=== PATIENT | female | born 1955 | race Hispanic/Latino ===

== ENCOUNTER 2017-05-05 12:19 | Emergency (ER) | payer MEDICARE ==
[2017-05-05 12:42] VITALS: BMI 30.9
[2017-05-05 12:48] VITALS: TEMP 98.1
[2017-05-05] MEDS ORDERED: Oxycodone/Acetaminophen 5/325 mg Tab PO STA (12:56)
--- NOTE | 2017-05-05 12:56 | ED PDOC ---
Arrival/HPI - General Chief Complaint: Lower Extremity Problem/Injury Time Seen by Provider: 05/05/17 12:50 Historian: Patient - History of Present Illness Narrative History of Present Illness (Text): 05/05/17 12:51 62 y/o female, pmh including htn/dm/hypothyroidism/stroke with chronic lt. sided decrease sensation, post menopausal, nkda, c/o lt. foot and calf pain x 3 days with no fall or trauma. Pt. stated that she twisted the left foot about 2 days ago, no pain, only pain when walking, no left ankle, admits lt. calf pain but no skin discoloration, no numbness or tingling, no palpitation, no night sweat, no other medical or psychological complaints. Past Medical History - Provider Review Nursing Documentation Reviewed: Yes - Infectious Disease Hx of Infectious Diseases: None - Cardiac Hx Cardiac Disorders: Yes Hx Hypertension: Yes - Pulmonary Hx Respiratory Disorders: No - Neurological Hx Neurological Disorder: Yes (brain aneurysm) HX Cerebrovascular Accident: Yes Other/Comment: left side of the body numbness from residual stroke - HEENT Hx HEENT Disorder: No - Renal Hx Renal Disorder: No - Endocrine/Metabolic Hx Endocrine Disorders: Yes Hx Diabetes Mellitus Type 2: Yes - Hematological/Oncological Hx Blood Disorders: No - Integumentary Hx Dermatological Disorder: No - Musculoskeletal/Rheumatological Hx Musculoskeletal Disorders: No - Gastrointestinal Hx Gastrointestinal Disorders: No - Genitourinary/Gynecological Hx Genitourinary Disorders: No - Psychiatric Hx Psychophysiologic Disorder: No Hx Substance Use: No - Anesthesia Hx Anesthesia: No Family/Social History - Physician Review Nursing Documentation Reviewed: Yes Family/Social History: Unknown Family HX Smoking Status: Former Smoker Hx Alcohol Use: Yes Frequency of alcohol use: Socially Hx Substance Use: No Allergies/Home Meds Allergies/Adverse Reactions: Allergies No Known Allergies Allergy (Verified 05/05/17 12:42) Home Medications: Home Meds Medication Instructions Recorded Confirmed Alprazolam [Xanax] 0.5 mg PO PRN PRN 10/22/15 05/05/17 Folic Acid 1 mg PO DAILY 10/22/15 05/05/17 Levothyroxine Sodium [Unithroid] 100 mcg PO DAILY 10/22/15 05/05/17 Metformin HCl [Glucophage] 500 mg PO QOTHERDAY 10/22/15 05/05/17 Metoprolol Tartrate [Lopressor] 50 mg PO BID 10/22/15 05/05/17 Aspirin [Adult Low Dose Aspirin EC] 325 mg PO HS 05/05/17 05/05/17 Hydrochlorothiazide [Microzide] 12.5 mg PO DAILY 05/05/17 05/05/17 Review of Systems - Review of Systems Constitutional: absent: Fatigue, Fevers Eyes: absent: Vision Changes ENT: absent: Hearing Changes Respiratory: absent: SOB, Cough Cardiovascular: absent: Chest Pain Gastrointestinal: absent: Abdominal Pain, Diarrhea, Nausea, Vomiting Musculoskeletal: Arthralgias, Myalgias. absent: Back Pain, Neck Pain, Joint Swelling Skin: absent: Rash, Pruritis, Skin Lesions Neurological: absent: Headache, Dizziness, Focal Weakness Physical Exam Vital Signs Reviewed: Yes Vital Signs Temp Pulse Resp BP Pulse Ox 05/05/17 12:46 98.1 F 99 H 19 117/82 96 Temperature: Afebrile Blood Pressure: Normal Pulse: Regular Respiratory Rate: Normal Appearance: Positive for: Well-Appearing, Non-Toxic Pain Distress: Moderate Mental Status: Positive for: Alert and Oriented X 3 - Systems Exam Head: Present: Atraumatic, Normocephalic Pupils: Present: PERRL Extroacular Muscles: Present: EOMI Conjunctiva: Present: Normal Mouth: Present: Moist Mucous Membranes Neck: Present: Normal Range of Motion Respiratory/Chest: Present: Clear to Auscultation, Good Air Exchange. No: Respiratory Distress, Accessory Muscle Use Cardiovascular: Present: Regular Rate and Rhythm, Normal S1, S2. No: Murmurs Abdomen: Present: Normal Bowel Sounds. No: Tenderness, Distention, Peritoneal Signs Back: Present: Normal Inspection Upper Extremity: Present: Normal Inspection. No: Cyanosis, Edema Lower Extremity: Present: Normal Inspection, Other (LLE: mild +ttp on the lt. calf and plantar region, negative reeder signs, no skin discoloration, FROM without limitation, sensation intact, motor 5/5, +DPPT pulses, capillary refill < 2 seconds, neurovascular intact. ). No: Edema Neurological: Present: GCS=15, Speech Normal, Motor Func Grossly Intact, Gait Normal, Memory Normal Skin: Present: Warm, Dry, Normal Color. No: Rashes Psychiatric: Present: Alert, Oriented x 3, Normal Insight, Normal Concentration Medical Decision Making ED Course and Treatment: 05/05/17 13:01 -LLE venuous doppler, lt. foot xray -toradol 30mg IM and percocet 05/05/17 14:28 -Pain decreased, posterior splint applied, feels much better. -Discharge home with celebrex, posterior splint, crutches, follow up with your own pmd and podiastrist/orthopedic within 2 days, return to the ER for any new or worsening signs or symptoms. - RAD Interpretation Radiology Orders: 05/05/17 12:56 FOOT LEFT 3 VIEWS ROUTINE [RAD] Stat DUPLEX LOWER EXTRM VEIN LEFT [US] Stat Lt. foot xray: PROCEDURE: Left Foot Radiographs. HISTORY: lt. foot pain sole pain COMPARISON: None. FINDINGS: BONES: No fracture 7 mm inferior calcaneal spur. Even larger posterior calcaneal spurring with subcortical cystic and sclerotic changes noted. There are posterior double well corticated ossifications centers within the inserting Achilles tendon. This appearance suggests chronicity Os peroneum os tibial externum are noted. JOINTS: First metatarsal-phalangeal joint arthrosis SOFT TISSUES: Normal. OTHER FINDINGS: Multiple hammertoe like orientations IMPRESSION: No fracture. Chronic changes about the calcaneus as above LLE venuous doppler: as per preliminary report, no acute dvt Chemic Mangler: Radiologist - Medication Orders Current Medication Orders: Discontinued Medications Ketorolac Tromethamine (Toradol) 30 mg IM STAT STA Stop: 05/05/17 12:57 Last Admin: 05/05/17 13:06 Dose: 30 mg Oxycodone/Acetaminophen (Percocet 5/325 Mg Tab) 1 tab PO STAT STA Stop: 05/05/17 12:57 Last Admin: 05/05/17 13:06 Dose: 1 tab - PA / WEATHER ANALYST / Resident Statement /DO has reviewed & agrees with the documentation as recorded. Disposition/Present on Arrival - Present on Arrival Any Indicators Present on Arrival: No History of DVT/PE: No History of Uncontrolled Diabetes: No Urinary Catheter: No History of Decub. Ulcer: No History Surgical Site Infection Following: None - Disposition Have Diagnosis and Disposition been Completed?: Yes Diagnosis: Plantar fasciitis, Foot pain, Calf pain Disposition: HOME/ ROUTINE Disposition Time: 13:01 Patient Plan: Discharge Patient Problems: Current Active Problems Problem Status Onset Plantar fasciitis Acute Foot pain Acute Calf pain Acute Condition: IMPROVED Additional Instructions: -Discharge home with celebrex, posterior splint, crutches, follow up with your own pmd and podiastrist/orthopedic within 2 days, return to the ER for any new or worsening signs or symptoms. Prescriptions: Celecoxib [CeleBREX] 200 mg PO DAILY PRN #10 cap PRN Reason: Other Referrals: Beni Hummel MD [Primary Care Provider] - Follow up with primary Minda Vasquez DPM [Staff Provider] - Follow up with primary Devin Almaraz MD [Staff Provider] - Follow up with primary Forms: [employer] (Maltese), WORK NOTE
--- NOTE | 2017-05-05 14:25 | RAD ---
PROCEDURE: Left Foot Radiographs. HISTORY: lt. foot pain sole pain COMPARISON: None. FINDINGS: BONES: No fracture 7 mm inferior calcaneal spur. Even larger posterior calcaneal spurring with subcortical cystic and sclerotic changes noted. There are posterior double well corticated ossifications centers within the inserting Achilles tendon. This appearance suggests chronicity Os peroneum os tibial externum are noted. JOINTS: First metatarsal-phalangeal joint arthrosis SOFT TISSUES: Normal. OTHER FINDINGS: Multiple hammertoe like orientations IMPRESSION: No fracture. Chronic changes about the calcaneus as above
[2017-05-05 15:01] VITALS: BP 134/84; PULSE 69; RESP 18; O2SAT 99
--- NOTE | 2017-05-05 19:28 | US ---
PROCEDURE: Left lower extremity venous US HISTORY: Leg pain and swelling. Evaluate for DVT. PHYSICIAN(S): Anselmo Heredia MD. TECHNIQUE: Duplex sonography and color-flow Doppler with graded compression were used to evaluate the deep venous system of the left lower extremity. FINDINGS: The visualized deep venous system of the left lower extremity is sonographically normal and compressible. Normal wave forms and augmentation are seen. There is no sonographic evidence for deep venous thrombosis in the visualized segments of the left lower extremity. IMPRESSION: 1. No sonographic evidence for deep venous thrombosis in the visualized segments of the left lower extremity.
== END 2017-05-05 15:12 | disposition home or self-care (01) ==
LOC: ED 12:19
DX: M79.662 Pain in left lower leg (principal); M79.672 Pain in left foot; M72.2 Plantar fascial fibromatosis
CPT/HCPCS: 73630; 93971; 96372; 99284; J1885

== ENCOUNTER 2018-10-18 13:27 | Outpatient (CLI) | payer MEDICARE | END 2018-10-18 13:28 | disposition home or self-care (01) | LOC: RAD 13:28 ==

== ENCOUNTER 2018-10-20 13:31 | Outpatient (CLI) | payer MEDICARE | END 2018-10-20 13:32 | disposition home or self-care (01) | LOC: RAD 13:31 ==

== ENCOUNTER → 2018-12-22 | Outpatient (CLI) | payer MEDICARE | END | disposition home or self-care (01) | LOC: RAD 08:27 | DX: Z01.810 Encounter for preprocedural cardiovascular examination (principal); Z01.811 Encounter for preprocedural respiratory examination ==